=== PATIENT | male | born 1950 | race Two or more races ===

== ENCOUNTER 2022-07-18 22:03 | Inpatient (IN) | payer MEDICARE, OTHER ==
[~2022-07-18] VITALS: Ht 172.7 cm; Wt 72.6 kg
[2022-07-18] MEDS ORDERED: IV NORMAL SALINE 1000 ML BAG IV ONE (22:15)
--- NOTE | 2022-07-18 22:17 | NUR ---
After being triaged, patient was placed on gurny in the ER hallway due to no beds available in the ER.
--- NOTE | 2022-07-18 22:24 | NUR ---
Patient out of unit for ct scan via gurny.
--- NOTE | 2022-07-18 22:33 | NUR ---
Patient back from ct scan.
--- NOTE | 2022-07-18 22:52 | NUR ---
Patient placed in room 3 at this time.
[2022-07-18 23:03] LABS: HEMATOCRIT 38.4 % (36.7-47.1); MEAN CORPUSCULAR HEMOGLOBIN 30.6 uug (23.8-33.4); MEAN CORPUSCULAR VOLUME 94.4 fL (73.0-96.2); PLATELET COUNT (AUTO) 147 K/uL (152-348)
[2022-07-18 23:15] LABS: ETHANOL < 3 MG/DL (0-0)
[2022-07-18 23:17] LABS: ALANINE AMINOTRANSFERASE 15 U/L (16-63); ALKALINE PHOSPHATASE 173 U/L (50-136); ASPARTATE AMINOTRANSFERASE 27 U/L (15-37); BILIRUBIN,DIRECT 0.1 mg/dL (0.0-0.2); BILIRUBIN,TOTAL 0.5 mg/dL (0.2-1.0); CARBON DIOXIDE 25 mmol/L (21-32); CHLORIDE 96 mmol/L (98-107); GLUCOSE 148 mg/dL (74-106); POTASSIUM 5.9 mmol/L (3.5-5.1); TOTAL PROTEIN, SERUM 7.1 g/dL (6.4-8.2); UREA NITROGEN, BLOOD 58 mg/dL (7-18)
[2022-07-18 23:19] LABS: CREATININE 8.5 mg/dL (0.6-1.3)
[2022-07-19] MEDS ORDERED: LACTULOSE 20 G/30 ML LIQUID UDC PO ONE (00:15)
--- NOTE | 2022-07-19 00:15 | NUR ---
Dr Banda ordered Lactulose PO. Patient has AMS, risk for aspiration
--- NOTE | 2022-07-19 00:41 | NUR ---
Called patient's son and informed him that patient is in the ER.
--- NOTE | 2022-07-19 02:41 | NUR ---
Called [facility] for panel call.
--- NOTE | 2022-07-19 02:44 | NUR ---
Called 3rd floor for bed. Spoke with Yamel HUSTONchargemaster analyst, she said she will call back.
[2022-07-19] MEDS ORDERED: VANCOMYCIN IV 1,000 MG in IV DEXTROSE 5% 250 ML IV ONE (02:45)
[2022-07-19] MEDS ORDERED: PIPERACILLIN SODIUM/TAZOBACTAM 3.375 G in IV DEXTROSE 5% 50 ML IV ONE (02:45)
[2022-07-19] MEDS ORDERED: VANCOMYCIN IV 200 ML ONE (02:49)
[2022-07-19] MEDS ORDERED: PIPERACILLIN/TAZOBACTAM/D5W 50 ML IV ONE (02:49)
[2022-07-19] MEDS ORDERED: ACETAMINOPHEN 325 MG TABLET PO PRN (03:15)
[2022-07-19] MEDS ORDERED: MAGNESIUM HYDROXIDE 30 ML LIQUID UDC PO PRN (03:15)
[2022-07-19] MEDS ORDERED: DEXTROSE 50% 50 ML DISP.SYRIN IV PRN (03:15)
[2022-07-19] MEDS ORDERED: ONDANSETRON 4 MG/2 ML VIAL IV PRN (03:15)
[2022-07-19] MEDS ORDERED: REMEDY ESSENTIAL ZINC PASTE 113 GM TP PRN (03:15)
[2022-07-19 05:17] LABS: ABG BASE EXCESS -9.2 mmol/L; ABG HCO3 17.8 mmol/L; ABG PCO2 43.2 mmHg (35.0-45.0); ABG PH 7.234 (7.350-7.450); ABG PO2 95.1 mmHg (75.0-100.0); ABG SITE RIGHT FEMORAL; COHb 0.9 % (0.5-1.5); MetHb 0.1 % (0.0-1.5); O2Hb 95.2 % (94.0-97.0)
--- NOTE | 2022-07-19 06:05 | NUR ---
Patient is now awake, a/ox4. Stating he feels "better"
--- NOTE | 2022-07-19 06:23 | NUR ---
report given to Yamel HUSTON
[2022-07-19] MEDS: BLOOD SUGAR DIAGNOSTIC 1 EACH STRIP VI SCH ×3 (07:15→18:06)
--- NOTE | 2022-07-19 07:20 | NUR ---
BS 41, gave 2 cups of orange juice and 50ml of D50. Pt is alert, awake and oriented to his name and place.
--- NOTE | 2022-07-19 08:00 | NUR ---
BS 76 after 2 cups of orange juice and D50. Pt is alert, awake, arousable by name.
--- NOTE | 2022-07-19 08:45 | NUR ---
Report was already given by Amna HUSTON before 7am. Transported pt to 322 under the care of Dr. Scales. Connected to O2 with 8Lpm. Received by John HUSTON. Called dietary to send diabetic diet for pt.
[2022-07-19 09:22] LABS: HEMATOCRIT 34.4 % (36.7-47.1); MEAN CORPUSCULAR HEMOGLOBIN 31.1 uug (23.8-33.4); PLATELET COUNT (AUTO) 138 K/uL (152-348)
[2022-07-19 09:37] LABS: CARBON DIOXIDE 20 mmol/L (21-32); CHLORIDE 98 mmol/L (98-107); GLUCOSE 152 mg/dL (74-106); MAGNESIUM 2.4 mg/dL (1.8-2.4); PHOSPHOROUS 6.8 mg/dL (2.5-4.9); POTASSIUM 6.1 mmol/L (3.5-5.1); UREA NITROGEN, BLOOD 67 mg/dL (7-18)
[2022-07-19] MEDS: PANTOPRAZOLE SODIUM 40 MG VIAL IV SCH (10:44)
[2022-07-19] MEDS: HEPARIN SODIUM,PORCINE 5,000 UNITS/ML VIAL SQ SCH ×2 (10:44→21:00)
[2022-07-19 10:48] VITALS: BP 104/24
[2022-07-19] MEDS ORDERED: ALBUTEROL SULFATE 2.5 MG/ 0.5 ML NEBU NEB PRN (11:30)
[2022-07-19] MEDS ORDERED: IPRATROPIUM BROMIDE 0.5 MG/2.5 ML NEBU NEB PRN (11:30)
--- NOTE | 2022-07-19 11:30 | NUR ---
EAR DISCHARGE AND SPUTUM SAMPLE COLLECTED. AND SENT TO LAB.
[2022-07-19] MEDS ORDERED: ALBUTEROL SULFATE 2.5 MG/3 ML NEBU NEB SCH (11:45)
[2022-07-19 11:46] VITALS: BP 114/48
[2022-07-19] MEDS: DEXAMETHASONE SOD PHOSPHATE 10 MG INJ IV SCH (12:34)
[2022-07-19] MEDS: IPRATROPIUM BROMIDE 0.5 MG/2.5 ML NEBU NEB SCH ×3 (12:47→20:30)
--- NOTE | 2022-07-19 12:54 | NUR ---
BLOOD SUGAR 57. GAVE OJ WITH 2 PACKET OF SUGAR. WILL REASSESS IN HR.
[2022-07-19 13:36] LABS: THYROID STIMULATING HORMONE 2.396 mIU/mL (0.358-3.740)
[2022-07-19] MEDS: CEFEPIME HCL 1 G in IV DEXTROSE 5% 50 ML IV SCH (14:54)
--- NOTE | 2022-07-19 15:16 | NUR ---
recheck blood sugar 190.
[2022-07-19 15:27] VITALS: BP 91/34
[2022-07-19] MEDS: ALBUTEROL SULFATE 2.5 MG/ 0.5 ML NEBU NEB SCH ×2 (15:46→20:30)
[2022-07-19] MEDS ORDERED: ATOR80TA PO (16:20)
[2022-07-19] MEDS ORDERED: TRAZ-257 PO (16:20)
[2022-07-19] MEDS ORDERED: SEVE800T8 PO (16:20)
[2022-07-19] MEDS ORDERED: FLUT1BLS6 IH (16:20)
[2022-07-19] MEDS ORDERED: APIX2.5T PO (16:20)
[2022-07-19] MEDS ORDERED: POLY17PO20 PO (16:20)
[2022-07-19] MEDS ORDERED: ALPR2TAB7 PO (16:20)
[2022-07-19] MEDS ORDERED: DULA1.5P SQ (16:20)
[2022-07-19] MEDS ORDERED: ICOS1CAP PO (16:20)
[2022-07-19] MEDS ORDERED: FOLI1TAB94 PO (16:20)
[2022-07-19] MEDS ORDERED: PREG100C55 PO (16:20)
[2022-07-19] MEDS ORDERED: PATI8.4P PO (16:20)
[2022-07-19] MEDS ORDERED: HYDR-3974 PO (16:20)
[2022-07-19] MEDS ORDERED: NIFE-34 PO (16:20)
[2022-07-19] MEDS ORDERED: DIPH25CA83 PO (16:20)
[2022-07-19] MEDS ORDERED: METO-295 PO (16:20)
[2022-07-19] MEDS ORDERED: FLUTICASONE BNOSTRILS (16:20)
[2022-07-19] MEDS ORDERED: CARV12.52 PO (16:20)
[2022-07-19] MEDS ORDERED: VITAMIN D PO (16:20)
[2022-07-19] MEDS ORDERED: GLIP5TAB26 PO (16:20)
[2022-07-19] MEDS ORDERED: VIT1TABL46 PO (16:38)
[2022-07-19] MEDS ORDERED: GUAI-671 PO (16:38)
[2022-07-19 17:00] VITALS: BP 115/52
[2022-07-19] MEDS: INSULIN REGULAR, HUMAN 300 UNIT/3 ML VIAL SQ PRN (18:12)
[2022-07-19 20:00] VITALS: BP 100/38
[2022-07-20] VITALS: BP 101/39
[2022-07-20 04:00] VITALS: BP 105/39
[2022-07-20] MEDS: INSULIN REGULAR, HUMAN 300 UNIT/3 ML VIAL SQ PRN ×4 (05:12→20:33)
[2022-07-20] MEDS: BLOOD SUGAR DIAGNOSTIC 1 EACH STRIP VI SCH ×5 (06:00→20:39)
--- NOTE | 2022-07-20 06:12 | NUR ---
RECEIVED PT ALERT BUT LETHARGIC PT DUE FOR DIALYSIS SATURDAY DIALYSIS NURSE ARRIVED AND ONCE FINISH SHE HAD TWO LITERS OUT TOLERATED WELL DENIES PAIN. PT HEPARIN WASN'T GIVEN PLATELETS 138 LOW MEDICATION HELD. NO SIGNS OF BLEEDING NOTED. PT HS BLOOD SUGAR IS 105 NO COVERAGE REQUIRED AND NO SIGNS OF DIABETIC REACTION NOTED. WILL CONTINUE TO MONITOR FOR SAFETY AND ENDORSE TO AM NURSE.
[2022-07-20 07:16] LABS: HEMATOCRIT 34.4 % (36.7-47.1); MEAN CORPUSCULAR HEMOGLOBIN 31.6 uug (23.8-33.4); MEAN CORPUSCULAR VOLUME 92.8 fL (73.0-96.2); PLATELET COUNT (AUTO) 145 K/uL (152-348)
[2022-07-20] MEDS: IPRATROPIUM BROMIDE 0.5 MG/2.5 ML NEBU NEB SCH ×4 (07:29→22:14)
[2022-07-20] MEDS: ALBUTEROL SULFATE 2.5 MG/ 0.5 ML NEBU NEB SCH ×4 (07:29→22:14)
[2022-07-20 07:31] LABS: CARBON DIOXIDE 26 mmol/L (21-32); CHLORIDE 96 mmol/L (98-107); CREATININE 6.8 mg/dL (0.6-1.3); GLUCOSE 83 mg/dL (74-106); POTASSIUM 4.5 mmol/L (3.5-5.1); UREA NITROGEN, BLOOD 47 mg/dL (7-18)
[2022-07-20] MEDS ORDERED: MIRALAX 17 GM POWD.PACK PO PRN (07:45)
[2022-07-20] MEDS ORDERED: HYDROCODONE/APAP 5-325MG TABLET PO PRN (07:45)
[2022-07-20] MEDS ORDERED: GUAIFENESIN/CODEINE 5 ML LIQUID UDC PO PRN (07:45)
[2022-07-20] MEDS: DEXAMETHASONE SOD PHOSPHATE 10 MG INJ IV SCH (08:50)
[2022-07-20] MEDS: SEVELAMER CARBONATE 800 MG TABLET PO SCH ×3 (08:50→17:59)
[2022-07-20] MEDS: FOLIC ACID/VITAMIN B COMP W-C TABLET PO SCH (08:50)
[2022-07-20] MEDS: APIXABAN 2.5 MG TABLET PO SCH ×2 (08:51→18:00)
[2022-07-20 08:52] LABS: MAGNESIUM 2.2 mg/dL (1.8-2.4); PHOSPHOROUS 6.2 mg/dL (2.5-4.9)
[2022-07-20] MEDS: PANTOPRAZOLE SODIUM 40 MG VIAL IV SCH (08:55)
[2022-07-20 08:56] LABS: ABG BASE EXCESS -4.2 mmol/L; ABG HCO3 21.2 mmol/L; ABG PCO2 40.1 mmHg (35.0-45.0); ABG PH 7.342 (7.350-7.450); ABG PO2 63.3 mmHg (75.0-100.0); ABG SITE LEFT RADIAL; COHb 0.6 % (0.5-1.5); MetHb 0.3 % (0.0-1.5); O2Hb 90.5 % (94.0-97.0); VENT MODE Nasal Cannula
[2022-07-20 11:04] VITALS: BP 107/38
[2022-07-20] MEDS: CEFEPIME HCL 1 G in IV DEXTROSE 5% 50 ML IV SCH (13:20)
[2022-07-20 16:11] VITALS: BP 91/41
[2022-07-20 16:49] VITALS: BP 111/48
[2022-07-20] MEDS: FLUTICASONE/VILANTEROL 1 EACH BLST.W.DEV INH SCH (17:59)
[2022-07-20] MEDS ORDERED: DEXTROSE 50% 50 ML DISP.SYRIN IV PRN (19:45)
[2022-07-20] MEDS: PREGABALIN 100 MG CAPSULE PO SCH (20:22)
[2022-07-20] MEDS: TRAZODONE 100 MG TABLET PO SCH (20:38)
[2022-07-20] MEDS ORDERED: BENZONATATE 100 MG CAPSULE PO PRN (21:15)
[2022-07-21] MEDS: BLOOD SUGAR DIAGNOSTIC 1 EACH STRIP VI SCH ×5 (06:18→21:00)
[2022-07-21] MEDS: PANTOPRAZOLE SODIUM 40 MG TABLET.DR PO SCH (06:18)
[2022-07-21 07:07] LABS: HEPATITIS B SURFACE AG Negative (Negative)
[2022-07-21 07:42] LABS: HEMATOCRIT 32.9 % (36.7-47.1); MEAN CORPUSCULAR HEMOGLOBIN 30.8 uug (23.8-33.4); MEAN CORPUSCULAR VOLUME 92.6 fL (73.0-96.2); PLATELET COUNT (AUTO) 156 K/uL (152-348)
[2022-07-21 07:57] LABS: ALANINE AMINOTRANSFERASE 16 U/L (16-63); ALKALINE PHOSPHATASE 114 U/L (50-136); ASPARTATE AMINOTRANSFERASE 28 U/L (15-37); BILIRUBIN,TOTAL 0.3 mg/dL (0.2-1.0); CARBON DIOXIDE 24 mmol/L (21-32); CHLORIDE 95 mmol/L (98-107); GLUCOSE 122 mg/dL (74-106); MAGNESIUM 2.5 mg/dL (1.8-2.4); PHOSPHOROUS 6.8 mg/dL (2.5-4.9); POTASSIUM 5.4 mmol/L (3.5-5.1); TOTAL PROTEIN, SERUM 6.2 g/dL (6.4-8.2); UREA NITROGEN, BLOOD 73 mg/dL (7-18)
[2022-07-21] MEDS: ALBUTEROL SULFATE 2.5 MG/ 0.5 ML NEBU NEB SCH ×4 (08:03→19:55)
[2022-07-21] MEDS: IPRATROPIUM BROMIDE 0.5 MG/2.5 ML NEBU NEB SCH ×4 (08:03→19:55)
[2022-07-21 08:07] LABS: CREATININE 8.9 mg/dL (0.6-1.3)
[2022-07-21 09:20] VITALS: BP 105/46
[2022-07-21] MEDS: APIXABAN 2.5 MG TABLET PO SCH ×2 (09:30→17:21)
[2022-07-21] MEDS: DEXAMETHASONE SOD PHOSPHATE 10 MG INJ IV SCH (09:30)
[2022-07-21] MEDS: FLUTICASONE/VILANTEROL 1 EACH BLST.W.DEV INH SCH (09:30)
[2022-07-21] MEDS: FOLIC ACID/VITAMIN B COMP W-C TABLET PO SCH (09:30)
[2022-07-21] MEDS: SEVELAMER CARBONATE 800 MG TABLET PO SCH ×3 (09:30→17:20)
[2022-07-21 11:36] VITALS: BP 106/38
[2022-07-21] MEDS: INSULIN REGULAR, HUMAN 300 UNIT/3 ML VIAL SQ PRN ×4 (12:06→21:02)
--- NOTE | 2022-07-21 14:14 | NUR ---
pt on dialysis. will give maxepime after.
[2022-07-21 16:40] VITALS: BP 114/48
[2022-07-21] MEDS: CEFEPIME HCL 1 G in IV DEXTROSE 5% 50 ML IV SCH (17:20)
--- NOTE | 2022-07-21 18:00 | NUR ---
shift note. pt on bed resting. HD today took out 1.8L. abx tx was administered after dialysis. on 6L nc saturating 95-96. no acute distress noted. pt is ambulatory. no complain of pain. no sob noted. ear and sputum culture resulted. procalcitonin trending up. notified.
[2022-07-21 20:00] VITALS: BP 145/58
[2022-07-21] MEDS: PREGABALIN 100 MG CAPSULE PO SCH (20:35)
[2022-07-21] MEDS: TRAZODONE 100 MG TABLET PO SCH (20:35)
[2022-07-22] VITALS: BP 97/43
[2022-07-22 04:00] VITALS: BP 106/45
[2022-07-22] MEDS: PANTOPRAZOLE SODIUM 40 MG TABLET.DR PO SCH (06:13)
[2022-07-22] MEDS: IPRATROPIUM BROMIDE 0.5 MG/2.5 ML NEBU NEB SCH ×4 (07:36→20:42)
[2022-07-22] MEDS: ALBUTEROL SULFATE 2.5 MG/ 0.5 ML NEBU NEB SCH ×4 (07:36→20:42)
[2022-07-22 07:40] LABS: MEAN CORPUSCULAR HEMOGLOBIN 30.9 uug (23.8-33.4); MEAN CORPUSCULAR VOLUME 93.4 fL (73.0-96.2); PLATELET COUNT (AUTO) 155 K/uL (152-348)
[2022-07-22] MEDS: BLOOD SUGAR DIAGNOSTIC 1 EACH STRIP VI SCH ×4 (07:42→20:00)
[2022-07-22 07:58] LABS: CARBON DIOXIDE 29 mmol/L (21-32); CHLORIDE 97 mmol/L (98-107); CREATININE 7.4 mg/dL (0.6-1.3); GLUCOSE 122 mg/dL (74-106); MAGNESIUM 2.4 mg/dL (1.8-2.4); PHOSPHOROUS 5.4 mg/dL (2.5-4.9); POTASSIUM 5.2 mmol/L (3.5-5.1); UREA NITROGEN, BLOOD 63 mg/dL (7-18)
[2022-07-22] MEDS: SEVELAMER CARBONATE 800 MG TABLET PO SCH ×3 (09:13→17:50)
[2022-07-22] MEDS: DEXAMETHASONE SOD PHOSPHATE 10 MG INJ IV SCH (09:13)
[2022-07-22] MEDS: FOLIC ACID/VITAMIN B COMP W-C TABLET PO SCH (09:14)
[2022-07-22] MEDS: APIXABAN 2.5 MG TABLET PO SCH ×2 (09:14→17:49)
[2022-07-22] MEDS: FLUTICASONE/VILANTEROL 1 EACH BLST.W.DEV INH SCH (09:16)
[2022-07-22 11:35] VITALS: BP 105/35
[2022-07-22] MEDS: INSULIN REGULAR, HUMAN 300 UNIT/3 ML VIAL SQ PRN ×3 (12:52→20:09)
[2022-07-22] MEDS: CEFEPIME HCL 1 G in IV DEXTROSE 5% 50 ML IV SCH (14:36)
[2022-07-22 16:39] VITALS: BP 128/88
--- NOTE | 2022-07-22 18:15 | NUR ---
shift noted. pt alert orientedx3-4. no acute distress noted. wean off nc to 4L pt saturating 95-96. no complain off pain. afebrile. pt is ambulatory. covid precaution in placed. call light on bedside.
[2022-07-22 20:00] VITALS: BP 124/43
[2022-07-22] MEDS: PREGABALIN 100 MG CAPSULE PO SCH (20:41)
[2022-07-22] MEDS: TRAZODONE 100 MG TABLET PO SCH (20:41)
[2022-07-23] VITALS: BP 126/56
[2022-07-23 04:00] VITALS: BP 126/55
[2022-07-23] MEDS: INSULIN REGULAR, HUMAN 300 UNIT/3 ML VIAL SQ PRN ×3 (06:18→16:51)
[2022-07-23] MEDS: PANTOPRAZOLE SODIUM 40 MG TABLET.DR PO SCH (06:18)
[2022-07-23] MEDS: BLOOD SUGAR DIAGNOSTIC 1 EACH STRIP VI SCH ×3 (06:18→16:34)
[2022-07-23 07:22] LABS: MEAN CORPUSCULAR HEMOGLOBIN 31.6 uug (23.8-33.4); PLATELET COUNT (AUTO) 155 K/uL (152-348)
[2022-07-23 07:40] LABS: CARBON DIOXIDE 28 mmol/L (21-32); CHLORIDE 95 mmol/L (98-107); GLUCOSE 92 mg/dL (74-106); MAGNESIUM 2.7 mg/dL (1.8-2.4); PHOSPHOROUS 6.3 mg/dL (2.5-4.9); POTASSIUM 5.6 mmol/L (3.5-5.1)
[2022-07-23 07:43] LABS: BILIRUBIN,DIRECT 0.1 mg/dL (0.0-0.2); BILIRUBIN,TOTAL 0.4 mg/dL (0.2-1.0); TOTAL PROTEIN, SERUM 6.5 g/dL (6.4-8.2)
[2022-07-23 07:45] LABS: CREATININE 9.6 mg/dL (0.6-1.3); UREA NITROGEN, BLOOD 85 mg/dL (7-18)
[2022-07-23] MEDS: ALBUTEROL SULFATE 2.5 MG/ 0.5 ML NEBU NEB SCH ×3 (08:30→15:45)
[2022-07-23] MEDS: IPRATROPIUM BROMIDE 0.5 MG/2.5 ML NEBU NEB SCH ×3 (08:30→15:45)
[2022-07-23] MEDS: SEVELAMER CARBONATE 800 MG TABLET PO SCH ×3 (08:31→18:13)
[2022-07-23] MEDS: FOLIC ACID/VITAMIN B COMP W-C TABLET PO SCH (08:49)
[2022-07-23] MEDS: DEXAMETHASONE SOD PHOSPHATE 10 MG INJ IV SCH (08:49)
[2022-07-23] MEDS: APIXABAN 2.5 MG TABLET PO SCH ×2 (08:51→16:35)
[2022-07-23] MEDS: FLUTICASONE/VILANTEROL 1 EACH BLST.W.DEV INH SCH (09:00)
--- NOTE | 2022-07-23 11:31 | NUR ---
D/C PLANNING PER THE GREEN BUILDING ARCHITECT NET DEVELOPER ARCHITECT PATIENT WILL BE DISCHARGED TO TO [facility] AWAITING FOR DISCHARGE ORDER MEANWHILE DIALYSIS JUST STARTED ORDERED.
[2022-07-23 11:43] VITALS: BP 124/74
--- NOTE | 2022-07-23 11:50 | NUR ---
PATIENT SEEN AND EXAMINED BY DR STERLING WITH NO NEW ORDERS AT THIS TIME.
[2022-07-23] MEDS: CEFEPIME HCL 1 G in IV DEXTROSE 5% 50 ML IV SCH (14:31)
--- NOTE | 2022-07-23 14:51 | NUR ---
DIALYSIS COMPLETED AND ONE LITER REMOVED PER THE SAT TUTOR BLOOD PRESSURE WAS ON THE LOW SIDE AND POST DIALYSIS BLOOD PRESSURE IS 103/57 PATIENT IS SEATED UP ON HIS BED ATE LUNCH AWAKE ALERT NO SOB NO DISTRESS AT THIS TIME.
[2022-07-23] MEDS ORDERED: ACID1TAB4 PO (15:28)
[2022-07-23] MEDS ORDERED: PANT40TA49 PO (15:28)
[2022-07-23] MEDS ORDERED: Blood Sugar Diagnostic VI (15:28)
[2022-07-23] MEDS ORDERED: CEFE1PIG3 IV (15:28)
[2022-07-23] MEDS ORDERED: IPRA0.2S6 NEB (15:28)
[2022-07-23] MEDS ORDERED: INSU100V28 SQ (15:28)
[2022-07-23] MEDS ORDERED: DEXT50DI8 IV (15:28)
[2022-07-23] MEDS ORDERED: ACET325T53 PO (15:28)
[2022-07-23] MEDS ORDERED: ALBU2.5V13 NEB (15:28)
[2022-07-23] MEDS ORDERED: METH4TAB3 PO (15:28)
[2022-07-23 15:35] VITALS: BP 137/55
--- NOTE | 2022-07-23 16:09 | NUR ---
CALLED [facility] AND REPORT GIVEN TO CELIA FOR CONTINUING CARE PATIENT WILL BE PICKED UP ABOUT 1800
--- NOTE | 2022-07-23 18:50 | NUR ---
PATIENT DISCHARGED PICKED UP BY THE [facility] IN SATISFACTORY CONDITION WITH DISCHARGE INSTRUCTIONS.HEPLOCK LEFT INTACT BECAUSE PATIENT WILL CONTINUE ON IVATB AT THE ASSISTED.
[2022-07-26] MEDS ORDERED: ERGOCALCIFEROL 50,000 UNIT CAPSULE PO SCH (09:00)
== END 2022-07-23 18:50 | DRG 871 ==
LOC: ER 22:03 → TELE3 07-19 08:36 → MEDSURG3 07-23 09:00
PROVIDERS: ADMIT Internal Medicine; ATTEND Internal Medicine
PROC: 5A1D70Z Performance of Urinary Filtration, Intermittent, Less than 6 Hours Per Day (ICD-10-PCS; principal; 2022-07-21)
DX: A41.89 Other specified sepsis (principal); G92.8 Other toxic encephalopathy; U07.1 COVID-19; J96.22 Acute and chronic respiratory failure with hypercapnia; N18.6 End stage renal disease; J96.21 Acute and chronic respiratory failure with hypoxia; J12.82 Pneumonia due to coronavirus disease 2019; D68.59 Other primary thrombophilia; I12.0 Hypertensive chronic kidney disease with stage 5 chronic kidney disease or end stage renal disease; J44.0 Chronic obstructive pulmonary disease with (acute) lower respiratory infection; I45.2 Bifascicular block; E87.4 Mixed disorder of acid-base balance; Z99.2 Dependence on renal dialysis; E11.65 Type 2 diabetes mellitus with hyperglycemia; E78.5 Hyperlipidemia, unspecified; E87.5 Hyperkalemia; Z86.73 Personal history of transient ischemic attack (TIA), and cerebral infarction without residual deficits; D63.8 Anemia in other chronic diseases classified elsewhere; F41.9 Anxiety disorder, unspecified; I25.10 Atherosclerotic heart disease of native coronary artery without angina pectoris; Z74.09 Other reduced mobility; M19.90 Unspecified osteoarthritis, unspecified site; H66.91 Otitis media, unspecified, right ear; F17.210 Nicotine dependence, cigarettes, uncomplicated; G62.9 Polyneuropathy, unspecified; H91.90 Unspecified hearing loss, unspecified ear; N25.0 Renal osteodystrophy; I50.9 Heart failure, unspecified; E11.649 Type 2 diabetes mellitus with hypoglycemia without coma; E11.22 Type 2 diabetes mellitus with diabetic chronic kidney disease
CPT/HCPCS: 36415; 36600; 70450; 71045; 83605; 83735; 84100; 84443; 84484; 85025; 86140; 86706; 87040; 87070; 87077; 87340; 90937; 93005; 94640; C9113; G0378; G0480; J0692; J1100; J1644; J1815; J2543; J3370; J3590; J7040